=== PATIENT | male | born 1990 | race American Indian/Alaskan Native ===

== ENCOUNTER 2018-08-18 15:19 | Emergency (ER) | payer BC ==
[2018-08-18 15:28] VITALS: BP 139/74
[2018-08-18] MEDS ORDERED: NORCO 5/325 PO ONE (18:07)
[2018-08-18 18:28] LABS: Basophils % (Auto) 0.4 % (0.0-1.8); Eosinophils # (Auto) 0.1 K/mm3 (0.0-0.4); Eosinophils % (Auto) 0.8 % (0.0-4.3); Hematocrit 40.2 % (35.5-45.6); Hemoglobin 13.4 gm/dl (11.8-15.2); Lymphocytes # (Auto) 1.2 K/mm3 (1.2-5.4); Lymphocytes % (Auto) 11.6 % (13.4-35.0); Mean Corpuscular HGB Conc 33 % (32-34); Mean Corpuscular Hemoglobin 28 pg (28-32); Mean Corpuscular Volume 85 fl (84-94); Monocytes % (Auto) 9.7 % (0.0-7.3); Platelet Count 361 K/mm3 (140-440); Red Blood Count 4.71 M/mm3 (3.65-5.03)
[2018-08-18 18:39] LABS: Alanine Aminotransferase 9 units/L (7-56); Albumin 4.1 g/dL (3.9-5); BUN/Creatinine Ratio 9; Blood Urea Nitrogen 7 mg/dL (9-20); Calcium 9.1 mg/dL (8.4-10.2); Hemolysis Index 15
--- NOTE | 2018-08-18 19:32 | Cat Scan Report ---
FINAL REPORT PROCEDURE: CT abdomen and pelvis with contrast. TECHNIQUE: Computerized axial tomography of the abdomen and pelvis was performed after the IV injection of iodinated nonionic contrast. HISTORY: Lower ABD Pain/perirectal abscess COMPARISON: No prior studies are available for comparison. FINDINGS: The lung bases are clear. There are no pleural effusions. The heart size is normal. The liver, pancreas and spleen appear normal. The gallbladder is present. The adrenal glands are not enlarged. Both kidneys appear normal in size and configuration. The abdominal aorta has a normal caliber. There is no retroperitoneal adenopathy. The unopacified gastrointestinal tract is unremarkable. A normal appendix is visible. The bladder, seminal vesicles and prostate appear normal. There is an ovoid area of low attenuation adjacent to the right side of the anus. This measures 2.6 centimeters by 2.0 centimeters by 3.2 centimeters. This is consistent with a perianal abscess. It should be amenable to incision and drainage. The regional skeleton appears intact. IMPRESSION: Right-sided perianal abscess as described. Otherwise normal studies of the abdomen and pelvis.
[2018-08-18] MEDS ORDERED: BACTRIM DS PO ONE (20:46)
[2018-08-18] MEDS ORDERED: KEFLEX PO ONE (20:48)
--- NOTE | 2018-08-18 21:28 | Emergency Department Report ---
- General Chief complaint: Rectal Pain Stated complaint: HEMORRHOIDS Time Seen by Provider: 08/18/18 17:57 Source: patient Mode of arrival: Ambulatory Limitations: No Limitations - History of Present Illness Initial comments: 28-year-old male presents emergency department complaining of progressively worsening rectal pain after utilization of Preparation H which was recommended by the urgent care after an evaluation 2-3 days ago. Reports having some feverish sensations as well. Noticed some scant blood with bowel movements, which has been constipated. No chest pain, no shortness of breath, no stomach pain -: This afternoon Severity: severe Quality: aching, constant Consistency: constant Worsens with: none Context: none Treatments Prior to Arrival: none - Related Data Previous Rx's Medication Instructions Recorded Last Taken Type Chlorhexidine Gluconate [Hibiclens] 10 ml TP BID #240 liquid 08/18/18 Unknown Rx Ketorolac [Toradol] 10 mg PO Q6H PRN #15 tablet 08/18/18 Unknown Rx Sulfamethoxazole/Trimethoprim 2 each PO BID #40 tablet 08/18/18 Unknown Rx [Bactrim DS TAB] cephALEXin [Keflex] 500 mg PO Q6HR #40 capsule 08/18/18 Unknown Rx Allergies Allergy/AdvReac Type Severity Reaction Status Date / Time No Known Allergies Allergy Unverified 08/18/18 15:25 Abscess Boil HPI - HPI Chief Complaint: Rectal Pain Stated Complaint: HEMORRHOIDS Time Seen by Provider: 08/18/18 17:57 Home Medications: Previous Rx's Medication Instructions Recorded Last Taken Type Chlorhexidine Gluconate [Hibiclens] 10 ml TP BID #240 liquid 08/18/18 Unknown Rx Ketorolac [Toradol] 10 mg PO Q6H PRN #15 tablet 08/18/18 Unknown Rx Sulfamethoxazole/Trimethoprim 2 each PO BID #40 tablet 08/18/18 Unknown Rx [Bactrim DS TAB] cephALEXin [Keflex] 500 mg PO Q6HR #40 capsule 08/18/18 Unknown Rx Allergies/Adverse Reactions: Allergies Allergy/AdvReac Type Severity Reaction Status Date / Time No Known Allergies Allergy Unverified 08/18/18 15:25 ED Review of Systems ROS: Stated complaint: HEMORRHOIDS Other details as noted in HPI Constitutional: denies: chills, fever Eyes: denies: eye pain, eye discharge, vision change ENT: denies: ear pain, throat pain Respiratory: denies: cough, shortness of breath, wheezing Cardiovascular: denies: chest pain, palpitations Endocrine: no symptoms reported Gastrointestinal: nausea. denies: abdominal pain, diarrhea Genitourinary: denies: urgency, dysuria Musculoskeletal: denies: back pain, joint swelling, arthralgia Skin: denies: rash, lesions Neurological: denies: headache, weakness, paresthesias Psychiatric: denies: anxiety, depression Hematological/Lymphatic: denies: easy bleeding, easy bruising ED Past Medical Hx - Past Medical History Previous Medical History?: No - Surgical History Additional Surgical History: left arm - Social History Smoking Status: Never Smoker Substance Use Type: Alcohol - Medications Home Medications: Home Medications Medication Instructions Recorded Confirmed Last Taken Type Chlorhexidine Gluconate [Hibiclens] 10 ml TP BID #240 liquid 08/18/18 Unknown Rx Ketorolac [Toradol] 10 mg PO Q6H PRN #15 tablet 08/18/18 Unknown Rx Sulfamethoxazole/Trimethoprim 2 each PO BID #40 tablet 08/18/18 Unknown Rx [Bactrim DS TAB] cephALEXin [Keflex] 500 mg PO Q6HR #40 capsule 08/18/18 Unknown Rx ED Physical Exam - General Limitations: No Limitations General appearance: alert, in no apparent distress - Head Head exam: Present: atraumatic, normocephalic - Eye Eye exam: Present: normal appearance, PERRL - ENT ENT exam: Present: normal exam, mucous membranes moist - Neck Neck exam: Present: normal inspection - Respiratory Respiratory exam: Present: normal lung sounds bilaterally. Absent: respiratory distress, rales, rhonchi, chest wall tenderness, decreased breath sounds - Cardiovascular Cardiovascular Exam: Present: regular rate, normal rhythm. Absent: systolic murmur, diastolic murmur, rubs, gallop - GI/Abdominal GI/Abdominal exam: Present: soft, normal bowel sounds - Rectal Rectal exam: Present: deferred, mass (Rectal region about 2 cm in diameter fluctuant in nature suggestive of abscess), tenderness. Absent: hemorrhoids, normal prostate, prostate enlargement - Extremities Exam Extremities exam: Present: normal inspection - Back Exam Back exam: Present: normal inspection - Neurological Exam Neurological exam: Present: alert, oriented X3 - Psychiatric Psychiatric exam: Present: normal affect, normal mood - Skin Skin exam: Present: warm, dry, intact, normal color. Absent: rash ED Course Vital Signs 08/18/18 08/18/18 15:25 21:46 Temperature 99.4 F Pulse Rate 92 H 89 Respiratory 16 16 Rate Blood Pressure 139/74 O2 Sat by Pulse 98 99 Oximetry - I & D Rectum Type of Procedure: Complex Site: a rectal abscess 2.5 cm Blade Size: 11 I & D Procedure: betadine prep (chlorhexidine as well), sterile drapes applied, sterile dressing applied, gauze wick placed Progress: T incision made. Copious amount of purulent drainage evacuated irrigated with normal saline. Procedure tolerated well. No complications ED Medical Decision Making - Lab Data Result diagrams: 08/18/18 18:12 08/18/18 18:12 Critical care attestation.: If time is entered above; I have spent that time in minutes in the direct care of this critically ill patient, excluding procedure time. ED Disposition Clinical Impression: Kenyatta-rectal abscess Disposition: DC- TO HOME OR SELFCARE Is pt being admited?: No Does the pt Need Aspirin: No Condition: Stable Instructions: Abscess Incision and Drainage (ED), Abscess (ED) Prescriptions: cephALEXin [Keflex] 500 mg PO Q6HR #40 capsule Chlorhexidine Gluconate [Hibiclens] 10 ml TP BID #240 liquid Ketorolac [Toradol] 10 mg PO Q6H PRN #15 tablet PRN Reason: Pain Sulfamethoxazole/Trimethoprim [Bactrim DS TAB] 2 each PO BID #40 tablet Referrals: PRIMARY CARE, [Primary Care Provider] - 3-5 Days Forms: Accompanied Note, Work/School Release Form(ED)
== END 2018-08-18 21:46 | disposition home or self-care (01) ==
LOC: ED 15:19
DX: K61.1 Rectal abscess (principal)
CPT/HCPCS: 36415; 46040; 74177; 80053; 85025; 99284; Q9967